=== PATIENT | male | born 1935 | race Caucasian/White ===

== ENCOUNTER 2016-12-28 13:48 | Emergency (ER) | payer OTHER, MEDICARE ==
[~2016-12-28] VITALS: Ht 177.8 cm; Wt 96.2 kg
--- NOTE | 2016-12-28 15:45 | ED UPPER/LOWER EXTREMITY COMPL ---
History of Present Illness General Chief Complaint: Lower Extremity Problems Stated Complaint: "MY TOES AND FEET ARE NUMB" Source: patient Exam Limitations: no limitations Vital Signs & Intake/Output Vital Signs & Intake/Output Vital Signs Date Time Temp Pulse Resp B/P Pulse O2 O2 Flow FiO2 Ox Delivery Rate 12/28 1404 98.3 77 20 153/77 96 Room Air Allergies Coded Allergies: MDX - Penicillin (PENICILLIN) (Severe, HIVES 10/18/13) Reconcile Medications Naproxen 375 MG TABLET 1 TAB PO BID PRN PAIN with food Triage Note: PT STATES HIS TOES AND FEET ARE NUMB AND ARE STARTING TO BECOME DISCOLORED. PT STATES IT'S BEEN GOING ON OVER A YEAR AND HE HASN'T SEEN ANYONE FOR IT BECAUSE HE'S STUPID Triage Nurses Notes Reviewed? yes Onset: Abrupt Duration: constant Timing: recent history Severity: mild Pain/Injury Location: Left: Foot, Ankle. HPI: Patient is a 81-year-old male who presents emergency and that approximately 10 days ago he was sitting for prolonged period OF time patient stood up where he noted his LEFT foot to be fallen asleep where he twisted his left ankle resulted him to fall to the ground however since patient has been noticing left lateral ankle and foot pain and today he noted swelling and bruising to the lateral aspect of his foot and toes. Patient has not taken any medications for symptoms. Denies any knee pain. Patient can ambulate with mild pain (PRINCE RENE) Past History Travel History Traveled to [place] past 21 day No Medical History Any Pertinent Medical History? see below for history Cardiovascular: hypertension, hyperlipidemia History of MRSA: No History of VRE: No History of CDIFF: No Influenza Vaccine: 08/31/13 Surgical History Surgical History: non-contributory Psychosocial History Who do you live with Patient/Self What is your primary language Guinean Tobacco Use: Quit >30 days ago ETOH Use: occasional use Illicit Drug Use: denies illicit drug use Family History Hx Contributory? No (PRINCE RENE) Review of Systems Review of Systems Constitutional: Reports: no symptoms. EENTM: Reports: no symptoms. Respiratory: Reports: no symptoms. Cardiovascular: Reports: no symptoms. Gastrointestinal/Abdominal: Reports: no symptoms. Genitourinary: Reports: no symptoms. Musculoskeletal: Reports: see HPI, joint pain, joint swelling. Skin: Reports: no symptoms. Neurological/Psychological: Reports: no symptoms. Hematologic/Endocrine: Reports: no symptoms. Immunological: Reports: no symptoms. All Other Systems: Reviewed and Negative (ROSALIO ROACH,PRINCE) Physical Exam Physical Exam General Appearance: no apparent distress, alert, comfortable Neurologic/Tendon: normal sensation, normal motor functions, normal tendon functions, responds to pain, no evidence tendon injury, no pulse deficit Skin: intact Comments: Well-developed well-nourished no apparent distress. HEENT: Atraumatic, extraocular motion intact Neck: Supple, no lymphadenopathy Back: Nontender Respiratory: No respiratory distress Extremities: Left knee nontender full active range of motion normal inspection Left ankle noted generalized swelling and lateral malleoli point tenderness full active range of motion noted with mild pain Left foot noted lateral ecchymosis and distal phalangeal ecchymosis and swelling Dermatomes intact pedal pulse +2 nontender Neuro: Alert and oriented x3 Psych: Mood affect normal, normal memory normal judgment. (PRINCE RENE) Progress Differential Diagnosis: arterial insufficiency, compartment syndrome, contusion, dislocation, DVT, fracture, gout, septic arthritis, sprain, tendon injury Diagnostic Imaging: Viewed by Me: Radiology Read. Radiology Impression: no fracture Comments: PATIENT: NATALIA ALLEN PRESENT AGE: 81 PATIENT ACCOUNT NO: [id number] : 37 LOCATION: [facility] ORDERING PHYSICIAN: PRINCE ROACH SERVICE DATE: 12/28/16402 EXAM TYPE: RAD - XRY-ANKLE 3 OR MORE VIEWS L; XRY-FOOT COMPLETE, LEFT EXAMINATION: XR ANKLE, LEFT XR FOOT, LEFT CLINICAL INFORMATION: Left ankle and foot pain. COMPARISON: None TECHNIQUE: 3 views of the left ankle. 3 views of the left foot. FINDINGS: Left ankle: Circumferential soft tissue swelling. No acute fracture or dislocation. No ankle joint effusion. The ankle mortise is congruent. There is osseous fragmentation adjacent to the tip of the medial malleolus likely from prior injury. There is hypertrophic spurring at the plantar aponeurosis and Achilles insertion to the calcaneus. Left foot: Hammertoe appearance of the second through fourth digits. The bones are osteopenic. No fracture or dislocation. Mild soft tissue swelling. Mild degenerative changes at the metatarsophalangeal joints. IMPRESSION: Circumferential soft tissue swelling at the ankle with mild soft tissue swelling of the foot. No acute fracture or malalignment. Evidence of chronic injury at the medial malleolus. Heel spurs. (PRINCE RENE) Plan of Care: Orders Procedure Date/time Status Durable Medical Equipment 12/28 1726 Active No osseous injury noted and x-rays. Peter wrap and ankle Aircast STIRR-UP was applied pre-and post-neurovascular was intact. Patient had normal steady gait on discharge was strongly advised to follow up with orthopedic doctor. (PRINCE RENE) Departure Departure Disposition: HOME OR SELF CARE Condition: Stable Clinical Impression Primary Impression: Left ankle sprain Referrals: AARON LOYOLA,DONALD BAUTISTA MD,Praveen SONI (PCP/Family) Additional Instructions: As discussed begin elevating YOUR foot for swelling begin icing the area directly 20 minute every 2 hours. Begin the prescription Naprosyn for pain and inflammation. Begin using the Peter wrap and ankle Aircast STIR-UP for stability support and swelling. If symptoms worsen return to emergency room. If no better one week follow-up with orthopedic Donald Devries MD for further evaluation treatment. PRESCRIPTIONS waiting at your pharmacy Departure Forms: Customer Survey General Discharge Information Prescriptions: Current Visit Scripts Naproxen 1 TAB PO BID PRN PAIN #20 TAB with food (PRINCE RENE) PA/GOLDSMITH APPRENTICE Co-Sign Statement Statement: ED Attending supervision documentation- [X] I saw and evaluated the patient. I have also reviewed all the pertinent lab results and diagnostic results. I agree with the findings and the plan of care as documented in the PA's/GOLDSMITH APPRENTICE's documentation. [] I have reviewed the ED Record and agree with the PA's/GOLDSMITH APPRENTICE's documentation. [] Additions or exceptions (if any) to the PAs/GOLDSMITH APPRENTICE's note and plan are summarized below: [] (GIDEON LOYOLA,ALISSA Ledezma)
--- NOTE | 2016-12-28 16:57 | RADIOLOGY REPORT ---
EXAMINATION: XR ANKLE, LEFT XR FOOT, LEFT CLINICAL INFORMATION: Left ankle and foot pain. COMPARISON: None TECHNIQUE: 3 views of the left ankle. 3 views of the left foot. FINDINGS: Left ankle: Circumferential soft tissue swelling. No acute fracture or dislocation. No ankle joint effusion. The ankle mortise is congruent. There is osseous fragmentation adjacent to the tip of the medial malleolus likely from prior injury. There is hypertrophic spurring at the plantar aponeurosis and Achilles insertion to the calcaneus. Left foot: Hammertoe appearance of the second through fourth digits. The bones are osteopenic. No fracture or dislocation. Mild soft tissue swelling. Mild degenerative changes at the metatarsophalangeal joints. IMPRESSION: Circumferential soft tissue swelling at the ankle with mild soft tissue swelling of the foot. No acute fracture or malalignment. Evidence of chronic injury at the medial malleolus. Heel spurs.
[2016-12-28] MEDS ORDERED: NAPROXEN375 M2 PO (17:24)
[2016-12-28] MEDS ORDERED: SIMVASTATIN40 M1 PO (17:44)
[2016-12-28] MEDS ORDERED: NIFEDIPINE ER60 M1 PO (17:44)
[2016-12-28] MEDS ORDERED: HYDRALAZINE HC100 M1 PO (17:44)
[2016-12-28 17:45] VITALS: BP 142/70
[2016-12-28] MEDS ORDERED: LOSARTAN POTASS50 M1 PO (17:45)
== END 2016-12-28 17:48 ==
LOC: ERH 13:48
DX: S93.402A Sprain of unspecified ligament of left ankle, initial encounter (principal); W19.XXXA Unspecified fall, initial encounter; Y92.9 Unspecified place or not applicable; Y93.9 Activity, unspecified
CPT/HCPCS: 73610-LT; 73630-LT